=== PATIENT | male | born 1950 | race Two or more races ===

== ENCOUNTER 2017-06-26 23:06 | Inpatient (IN) | payer OTHER ==
[~2017-06-26] VITALS: Ht 182.9 cm; Wt 106.1 kg
--- NOTE | 2017-06-26 22:30 | NUR ---
GPS RN NOTES: ADMITTED A 66-Y/O MALE BROUGHT IN BY AMBULANCE DIRECT ADMIT FROM [facility]. ON 5150 HOLD FOR DTS. PER HOLD PATIENT STATES HE'S BEEN DEPRESSED AND SUICIDAL FOR THE PAST 3-4 DAYS AND THAT HIS SI IS GETTING WORSE AND FEARS IF DC'D HE WILL TRY TO KILL HIMSELF. PATIENT DOES NOT HAVE A SPECIFIC PLAN TO KILL HIMSELF. UPON FACE TO FACE ASSESSMENT PATIENT APPEARS TO BE ALERT, ORIENTED X 4, COOPERATIVE AND ANXIOUS. DENIES ANY SI/HI/AVH AT THIS TIME. ABLE TO AMBULATE INDEPENDENTLY WITH A STEADY GAIT. NO ACUTE DISTRESS NOTED. NO C/O PAIN OR DISCOMFORT AT THIS TIME. BELONGINGS INVENTORIED AND CHECKED FOR CONTRABAND. REVIEWED PATIENT'S RIGHTS AND HE VERBALIZED UNDERSTANDING. PATIENT IS UNDER THE PSYCHIATRIC CARE OF DR. SPIVEY, ORDERS OBTAINED, AND UNDER THE MEDICAL CARE OF TOBY WILKINS, CAME IN THE UNIT NOTIFIED OF ADMISSION AND MED RECON DONE. SKIN AND BODY ASSESSMENT DONE. MRSA SCREENING DONE. NO FAMILY TO NOTIFY FOR HIS ADMISSION. BED LOCKED AND PLACED IN LOWEST POSITION. ROOM SAFETY CHECKED. WILL CONTINUE TO MONITOR [id number] FOR SAFETY AND BEHAVIOR.
[2017-06-26 23:40] VITALS: BP 149/85
[2017-06-27] MEDS ORDERED: MAGNESIUM HYDROXIDE 30 ML UDC PO PRN (00:30)
[2017-06-27] MEDS ORDERED: ACETAMINOPHEN 325 MG TABLET PO PRN (00:30)
[2017-06-27] MEDS ORDERED: MAG HYDROX/AL HYDROX/SIMETH 30 ML UDC PO PRN (00:30)
[2017-06-27] MEDS ORDERED: PREG150C PO (00:49)
[2017-06-27] MEDS ORDERED: HYDR-548 PO (00:49)
[2017-06-27] MEDS ORDERED: GLIM2TAB2 PO (00:49)
[2017-06-27 07:47] LABS: BILIRUBIN,TOTAL 0.4 mg/dL (0.2-1.0); CALCIUM, SERUM 8.5 mg/dL (8.5-10.1); TOTAL PROTEIN, SERUM 6.6 g/dL (6.4-8.2)
[2017-06-27 08:00] VITALS: BP 164/86
[2017-06-27] MEDS: DOCUSATE SODIUM LIQ 100 MG/10 ML UDC NG SCH (09:00)
[2017-06-27] MEDS: GLIMEPIRIDE 1 MG TABLET PO SCH (09:24)
[2017-06-27] MEDS: NICOTINE PATCH (7MG) 7 MG PATCH.TD24 TD SCH (09:25)
[2017-06-27] MEDS: LORAZEPAM 0.5 MG TABLET PO PRN ×2 (09:25→17:08)
[2017-06-27] MEDS: PREGABALIN 25 MG CAPSULE PO SCH ×2 (09:25→16:53)
[2017-06-27] MEDS: HYDROCODONE/APAP 10/325MG 1 EA TABLET PO PRN ×2 (12:39→18:48)
[2017-06-27] MEDS: risperiDONE 1 MG TABLET PO SCH ×2 (13:37→21:14)
[2017-06-27] MEDS: FLUOXETINE HCL 20 MG CAPSULE PO SCH (13:37)
[2017-06-27 16:00] VITALS: BP 117/67
--- NOTE | 2017-06-27 16:38 | NUR ---
RN NOTE CAROLE RECEIVED FROM PHARMACY AT 1600. MED GIVEN TO PATIENT
[2017-06-27] MEDS: LATUDA 120 MG PO SCH (16:53)
[2017-06-27 20:23] VITALS: BP 143/78
[2017-06-28 07:27] LABS: CREATININE 0.9 mg/dL (0.6-1.3)
[2017-06-28 07:34] LABS: CHOLESTEROL 174 mg/dL (<200); HDL CHOLESTEROL 39 mg/dL (40-60); LDL 114 mg/dL (0-99); TRIGLYCERIDES 141 mg/dL (30-150)
[2017-06-28 08:00] VITALS: BP 154/64
[2017-06-28] MEDS: risperiDONE 1 MG TABLET PO SCH ×2 (08:17→20:17)
[2017-06-28] MEDS: FLUOXETINE HCL 20 MG CAPSULE PO SCH (08:17)
[2017-06-28] MEDS: NICOTINE PATCH (7MG) 7 MG PATCH.TD24 TD SCH (08:17)
[2017-06-28] MEDS: GLIMEPIRIDE 1 MG TABLET PO SCH (08:17)
[2017-06-28] MEDS: DOCUSATE SODIUM LIQ 100 MG/10 ML UDC NG SCH (08:17)
[2017-06-28] MEDS: LATUDA 120 MG PO SCH (08:18)
[2017-06-28] MEDS: PREGABALIN 25 MG CAPSULE PO SCH ×2 (08:44→16:15)
[2017-06-28] MEDS: HYDROCODONE/APAP 10/325MG 1 EA TABLET PO PRN (08:45)
--- NOTE | 2017-06-28 12:17 | NUR ---
UR NOTE: MAURO contacted Remdeios at [facility] at [phone]. MAURO left voicemail for call back.
--- NOTE | 2017-06-28 12:33 | NUR ---
MAURO contacted [facility] [address] [place] [address] and spoke with Christiane regarding admission. Christiane stated she would have sales training coordinator call back MAURO.
[2017-06-28] MEDS: LORAZEPAM 0.5 MG TABLET PO PRN (12:41)
--- NOTE | 2017-06-28 13:36 | NUR ---
INITIAL DISCHARGE PLAN: Pt wants to be placed at [facility] [address] [place] [address] Independent Living/Memory Care But if unable to place pt will return home to Room and Board [address] [facility] [address] . SW will help form a safe and proper discharge in collaboration with .
--- NOTE | 2017-06-28 13:45 | NUR ---
UR NOTE: MAURO faxed clinical review packet to Remedios from [facility] to [phone]. authorization number still pending.
[2017-06-28 16:00] VITALS: BP 140/82
[2017-06-28 20:00] VITALS: BP 153/85
[2017-06-28] MEDS: ZOLPIDEM TARTRATE 5 MG TABLET PO PRN (20:37)
--- NOTE | 2017-06-28 20:38 | NUR ---
AMBIEN 5 MG TAB PO GIVEN FOR SLEEP.
[2017-06-29 07:47] VITALS: BP 130/77
[2017-06-29] MEDS: DOCUSATE SODIUM LIQ 100 MG/10 ML UDC NG SCH ×2 (08:06→08:18)
[2017-06-29] MEDS: FLUOXETINE HCL 20 MG CAPSULE PO SCH (08:07)
[2017-06-29] MEDS: NICOTINE PATCH (7MG) 7 MG PATCH.TD24 TD SCH (08:07)
[2017-06-29] MEDS: LATUDA 120 MG PO SCH (08:07)
[2017-06-29] MEDS: GLIMEPIRIDE 1 MG TABLET PO SCH (08:07)
[2017-06-29] MEDS: PREGABALIN 25 MG CAPSULE PO SCH ×2 (08:07→17:24)
[2017-06-29] MEDS: risperiDONE 1 MG TABLET PO SCH ×3 (08:08→21:52)
[2017-06-29] MEDS: LORAZEPAM 0.5 MG TABLET PO PRN (08:41)
[2017-06-29] MEDS: HYDROCODONE/APAP 10/325MG 1 EA TABLET PO PRN ×2 (10:16→17:53)
--- NOTE | 2017-06-29 12:42 | NUR ---
MAURO received a call from Edu Kwok [phone] [phone] who informed MAURO that she would be assisting SW with discharge after care for pt. MAURO will call Malou once discharge date is identified.
[2017-06-29] MEDS ORDERED: risperiDONE 1 MG TABLET PO SCH (13:00)
[2017-06-29 16:02] VITALS: BP 120/60
[2017-06-29 20:00] VITALS: BP 121/65
[2017-06-29] MEDS: hydrOXYzine PAMOATE 25 MG CAPSULE PO PRN (20:06)
[2017-06-29] MEDS: ZOLPIDEM TARTRATE 5 MG TABLET PO PRN (21:52)
[2017-06-30 08:00] VITALS: BP 128/65
[2017-06-30] MEDS: DOCUSATE SODIUM LIQ 100 MG/10 ML UDC NG SCH (09:00)
[2017-06-30] MEDS: LATUDA 120 MG PO SCH (09:18)
[2017-06-30] MEDS: GLIMEPIRIDE 1 MG TABLET PO SCH (09:19)
[2017-06-30] MEDS: NICOTINE PATCH (7MG) 7 MG PATCH.TD24 TD SCH (09:19)
[2017-06-30] MEDS: FLUOXETINE HCL 20 MG CAPSULE PO SCH (09:19)
[2017-06-30] MEDS: PREGABALIN 25 MG CAPSULE PO SCH ×2 (09:20→16:57)
[2017-06-30] MEDS: risperiDONE 1 MG TABLET PO SCH ×3 (09:20→22:14)
[2017-06-30] MEDS: hydrOXYzine PAMOATE 25 MG CAPSULE PO PRN (15:11)
[2017-06-30 16:14] VITALS: BP 122/65
[2017-06-30 20:00] VITALS: BP 99/51
[2017-06-30] MEDS: ZOLPIDEM TARTRATE 5 MG TABLET PO PRN (22:14)
[2017-07-01 08:00] VITALS: BP 127/58
[2017-07-01] MEDS: PREGABALIN 25 MG CAPSULE PO SCH ×2 (08:44→16:21)
[2017-07-01] MEDS: NICOTINE PATCH (7MG) 7 MG PATCH.TD24 TD SCH (08:44)
[2017-07-01] MEDS: FLUOXETINE HCL 20 MG CAPSULE PO SCH (08:44)
[2017-07-01] MEDS: DOCUSATE SODIUM LIQ 100 MG/10 ML UDC NG SCH (08:44)
[2017-07-01] MEDS: risperiDONE 1 MG TABLET PO SCH ×3 (08:44→21:09)
[2017-07-01] MEDS: GLIMEPIRIDE 1 MG TABLET PO SCH (08:44)
[2017-07-01] MEDS: LATUDA 120 MG PO SCH (08:46)
[2017-07-01] MEDS: HYDROCODONE/APAP 10/325MG 1 EA TABLET PO PRN ×2 (09:49→17:25)
[2017-07-01] MEDS: hydrOXYzine PAMOATE 25 MG CAPSULE PO PRN (16:20)
[2017-07-01 16:24] VITALS: BP 126/71
--- NOTE | 2017-07-01 19:30 | NUR ---
RECEIVED PATIENT UP IN BED. AO X 3, ABLE TO MAKE NEEDS KNOWN. NO ACUTE DISTRESS NOTED. DENIES ANY PAIN AT THIS TIME. CALM AND COOPERATIVE. NO SUICIDE PLAN. NO HI. SAFETY REMINDERS GIVEN. ON LOW BED WITH BILATERAL UPPER SIDE RAILS UP. CALL SRINIVASAN WITHIN EASY REACH. WILL CONTINUE TO MONITOR.
[2017-07-01 20:00] VITALS: BP 106/58
[2017-07-01 20:06] VITALS: BP 106/58
[2017-07-01] MEDS: ZOLPIDEM TARTRATE 5 MG TABLET PO PRN (21:10)
--- NOTE | 2017-07-02 06:11 | NUR ---
PATIENT ASLEEP, EASILY AROUSABLE. RESPIRATIONS EVEN. NO SIGNS OF PAIN NOTED. DUE MEDS GIVEN WITH NO ASE NOTED. NEEDS ATTENDED. SAFETY PRECAUTIONS AND COMFORT MEASURES IN PLACE. WILL GIVE REPORT TO DAY SHIFT FOR CONTINUITY OF CARE.
[2017-07-02 08:00] VITALS: BP 138/75
[2017-07-02] MEDS: GLIMEPIRIDE 1 MG TABLET PO SCH (08:51)
[2017-07-02] MEDS: NICOTINE PATCH (7MG) 7 MG PATCH.TD24 TD SCH (08:51)
[2017-07-02] MEDS: PREGABALIN 25 MG CAPSULE PO SCH ×2 (08:51→16:06)
[2017-07-02] MEDS: DOCUSATE SODIUM LIQ 100 MG/10 ML UDC NG SCH (08:51)
[2017-07-02] MEDS: FLUOXETINE HCL 20 MG CAPSULE PO SCH (08:51)
[2017-07-02] MEDS: LATUDA 120 MG PO SCH (08:52)
[2017-07-02] MEDS: risperiDONE 1 MG TABLET PO SCH ×3 (09:04→21:43)
[2017-07-02] MEDS: HYDROCODONE/APAP 10/325MG 1 EA TABLET PO PRN (10:36)
--- NOTE | 2017-07-02 10:40 | NUR ---
GPS/RN PATIENT REPORTS 8/10 LOWER BACK PAIN, ADMINISTERED NORCO 10 1 TAB, WILL CONTINUE TO MONITOR.
[2017-07-02 16:00] VITALS: BP 152/72
[2017-07-02 19:38] VITALS: BP 139/63
[2017-07-02 20:00] VITALS: BP 139/63
[2017-07-03 08:00] VITALS: BP 136/78
[2017-07-03] MEDS: risperiDONE 1 MG TABLET PO SCH (09:00)
[2017-07-03] MEDS: GLIMEPIRIDE 1 MG TABLET PO SCH (09:00)
[2017-07-03] MEDS: PREGABALIN 25 MG CAPSULE PO SCH (09:01)
[2017-07-03] MEDS: NICOTINE PATCH (7MG) 7 MG PATCH.TD24 TD SCH (09:01)
[2017-07-03] MEDS: FLUOXETINE HCL 20 MG CAPSULE PO SCH (09:01)
[2017-07-03] MEDS: DOCUSATE SODIUM LIQ 100 MG/10 ML UDC NG SCH (09:01)
[2017-07-03] MEDS: LATUDA 120 MG PO SCH (09:03)
--- NOTE | 2017-07-03 12:02 | NUR ---
DISCHARGE NOTE: Pt discharged at 12:00pm home to [address] [facility] [address] via taxi (paid by pt). Pts matteo/Pastor Jordan [phone] has been notified and agrees to discharge plan. Pt denied suicidal/homicidal ideations and denied visual/auditory hallucinations. Pts mood and affect was calm and cooperative and appeared happy to be discharging home. Pt has a follow up appointment with Dr Zeferino Mojica [id number] [place] [id number] for individual therapy on June at 10:30am and an appointment for medication management with Abhinav Huggins NP [address] [place] [address] on Thursday, July 13, 2017 at 11:00am. Pts will continue to be under the medical car of [employer] Instructor: Dr. Sánchez Hagen [address] [address] [phone] and Psychiatrist: Dr. David Morfin [address] [place] [address] . The multidisciplinary exitcare form was done, printed, signed, and given to the patient.
--- NOTE | 2017-07-03 12:12 | NUR ---
MAURO faxed continuing care packet to Psychiatrist: Dr. David Morfin [address] [place] [address], [place] [address] .
--- NOTE | 2017-07-03 12:55 | NUR ---
GPS/RN PATIENT CLEARED FOR DISCHARGE HOME BY DR SPIVEY AND DR NICOLE CAMACHO. PRESCRIPTIONS INCLUDED IN PACKET AND FAXED INTO [facility]. MEDICATIONS, EXIT CARE AND AFTERCARE PLAN EXPLAINED TO PATIENT, VERBALIZED UNDERSTANDING. BELONGINGS, VALUABLES RETURNED TO PATIENT COSIGNED BY 2 STAFF MEMBERS. PATIENT DENIES SI/HI/AH UPON DISCHARGE, PSYCHIATRIC TREATMENT PLANS MET, INSTRUCTED TO GO TO NEAREST ER IF DEVELOPING SI/HI. PATIENT REFUSED D/C PHOTOS X 3, EXPLAINED RISKS AND BENEFITS. PATIENT LEFT UNIT CALM, COOPERATIVE WITH NO DISTRESS NOTED WITH GAS LOAD DISPATCHER AT SIDE. LEFT HOSPITAL VIA TAXI.
--- NOTE | 2017-07-18 11:08 | NUR ---
15 DAY SUBSTANCE ABUSE FOLLOW-UP: SW unable to follow up due to pts contact number no longer valid.
== END 2017-07-03 11:55 | disposition home or self-care (01) | DRG 885 ==
LOC: GPS 23:06
PROVIDERS: ADMIT Psychiatry & Neurology Psychiatry; ATTEND Nurse Practitioner Acute Care
DX: F25.1 Schizoaffective disorder, depressive type (principal); E44.1 Mild protein-calorie malnutrition; R45.851 Suicidal ideations; F17.210 Nicotine dependence, cigarettes, uncomplicated; E11.9 Type 2 diabetes mellitus without complications; G89.29 Other chronic pain; K59.09 Other constipation; Z68.31 Body mass index [BMI] 31.0-31.9, adult; F31.9 Bipolar disorder, unspecified
CPT/HCPCS: 36415; 80053-TC; 80061-TC; 82565-TC; 87081-TC; Q0177